=== PATIENT | female | born 1965 ===

== ENCOUNTER 2024-07-24 18:05 | Emergency (ER) | payer OTHER, SELFPAY ==
[2024-07-24] VITALS (9 sets, daily range): BP systolic 115–147; BP diastolic 54–77; PULSE 105–119; RESP 14–20; TEMP 36.8–38.1; O2SAT 94–97; BMI 43.5
--- NOTE | 2024-07-24 18:52 | ECG_ITS ---
Test Reason : tachy Blood Pressure : */* mmHG Vent. Rate : 114 BPM Atrial Rate : 114 BPM P-R Int : 120 ms QRS Dur : 72 ms QT Int : 314 ms P-R-T Axes : 68 50 -8 degrees QTcB Int : 432 ms Sinus tachycardia Nonspecific T wave abnormality Abnormal ECG When compared with ECG of 18-Sep-2018 10:42, No significant change was found Referred By: Keli Matthews Electronically Signed By: TREVOR SNYDER MD
--- NOTE | 2024-07-24 19:12 | ED.SKABFB ---
HPI - Skin/Abscess/Foreign Bdy General Chief complaint: Skin/Abscess/Foreign Body Stated complaint: Right side lump under armpit / very tender Time Seen by Provider: 07/24/24 18:54 Source: patient Limitations: no limitations History of Present Illness ED Provider: Bridget Woodward PA-C HPI narrative: 58-year-old female with a history of morbid obesity presents with infection in and right axilla times 4 days. Patient states she noted a swelling in the right armpit region, the swelling and pain have since progressed. Patient developed a fever today. Patient was seen by primary care on Saturday, she was placed on antibiotics, she is pending surgical consult with Dr. Frias scheduled for Thursday 07/27. Related Data Previous Rx's ?Medication ?Instructions ?Recorded doxycycline hyclate 100 mg capsule 100 mg PO BID #14 caps 07/24/24 ibuprofen 800 mg tablet 800 mg PO Q8H PRN pain #30 tabs 07/27/24 Allergies Allergy/AdvReac Type Severity Reaction Status Date / Time acetaminophen [From PERCOCET] Allergy Intermediate HIVES Verified 07/27/24 11:16 oxycodone [From PERCOCET] Allergy Intermediate HIVES Verified 07/27/24 11:16 trimethobenzamide Allergy Mild RASH Verified 07/27/24 11:16 [From TIGAN] Review of Systems Review of Systems: Yes all other systems are reviewed and are negative Constitutional: Constitutional: Denies fatigue and Reports fever(s) Cardiovascular: Cardiovascular: Denies chest pain and Denies dyspnea Respiratory: Respiratory: Denies cough and Denies dyspnea Gastrointestinal: Gastrointestinal: Denies abdominal pain, Denies nausea and Denies vomiting Genitourinary: Genitourinary: Denies dysuria Integumentary/Breasts: Skin/Breast: Reports lesions and Reports erythema Endocrine: Endocrine: Denies fatigue PMFSH Past Medical History Attestation statement: The following information was validated with the patient. Physical Exam Vital Signs: Vital Signs: Last Vital Signs Temp 98.6 F 07/24/24 23:29 Pulse 107 H 07/24/24 23:29 Resp 16 07/24/24 23:29 BP 127/57 L 07/24/24 23:29 Pulse Ox 97 07/24/24 23:29 O2 Del Method Room Air 07/24/24 23:29 BMI result Body Mass Index 43.5 Const: Other: Alert Orientation/consciousness: patient oriented x3 Resp: Effort & Inspection: normal respiratory effort Cardio: Other: Normal peripheral perfusion Skin: Other: To tender indurated fluctuant swelling noted right axilla overlying erythema, active purulent drainage from 1 of the sites Neuro: General: patient oriented x3, gait normal, no focal motor deficits and CN's II-XI intact bilaterally Psych: Other: Cooperative Course Reevaluation(s) Reevaluation #1: concern for sepsis , the patient was febrile and tachycardic, we will be obtaining blood cultures, lactic, at this point she does not require weight based IV fluid as her blood pressure is stable, we will give a L, treating her fever with antipyretic, starting doxycycline. Pt declines other testing for source for her fever; discontinuing the chest x-ray in the urinalysis, and viral Time: 19:12 Reevaluation #2: Medications Administered Discontinued Medications Generic Name Dose Route Start Last Admin Trade Name Freq PRN Reason Stop Dose Admin Sodium Chloride 1,000 mls @ 999 mls/hr 07/24/24 19:00 07/24/24 21:01 Ns IV 07/24/24 20:00 Infused .Q1H1M SWATI Infusion Doxycycline Hyclate 100 mg/ 250 mls @ 166.67 mls/hr 07/24/24 20:00 07/24/24 21:29 Sodium Chloride IV 07/24/24 21:29 Infused ONCE ONE Infusion Ketorolac Tromethamine 15 mg 07/24/24 18:55 07/24/24 20:00 Ketorolac Tromethamine 15 Mg/Ml Vial IVPUSH 07/24/24 18:56 15 mg ONCE ONE Administration Lidocaine/Epinephrine 20 ml 07/24/24 20:01 07/24/24 20:25 Lidocaine Hcl 1%/Epi 1:100,000 10 Ml Vial INFILTRATI 07/24/24 20:02 20 ml ONCE ONE Administration Lorazepam 1 mg 07/24/24 20:00 07/24/24 20:20 Lorazepam 2 Mg/Ml Vial IVPUSH 07/24/24 20:01 1 mg ONCE ONE Administration Morphine Sulfate 4 mg 07/24/24 20:00 07/24/24 20:20 Morphine Sulfate 4 Mg/Ml Cartridge IVPUSH 07/24/24 20:01 4 mg ONCE ONE Administration Protocol Medical Decision Making Medical Decision Making [facility] Narrative: 58-year-old female with a history of morbid obesity presents with infection in and right axilla times 4 days. Patient states she noted a swelling in the right armpit region, the swelling and pain have since progressed. Patient developed a fever today. Patient was seen by primary care on Saturday, she was placed on antibiotics, she is pending surgical consult with Dr. Frias scheduled for Thursday 07/27. Problem: Large abscesses History: Per patient I have considered the following differential diagnoses: Sepsis, cellulitis, purulent cellulitis, carbuncle, furuncle, hidradenitis suppurativa Plan: concern for sepsis , the patient was febrile and tachycardic, we will be obtaining blood cultures, lactic, at this point she does not require weight based IV fluid as her blood pressure is stable, we will give a L, treating her fever with antipyretic, starting doxycycline. I do believe the abscesses are the cause for her fever, in the absence of any other symptoms. She will require I and D. we will be giving morphine and Ativan prior to prepping the site for I and D. I have independently reviewed the following tests: Labs: Leukocytosis noted with left shift, not anemic, no electrolyte abnormality, lactate 1.0 Lab Data 07/24/24 19:19 07/24/24 19:20 Labs: Lab Results 07/24/24 07/24/24 Range/Units 19:19 19:20 WBC 17.6 H (4.8-10.8) X10*3/uL RBC 4.88 (4.20-5.50) X10*6/uL Hgb 14.7 (12.0-16.0) g/dl Hct 41.0 (37.0-47.0) % MCV 84.0 (80.0-98.0) fL MCH 30.1 (27.0-33.0) pg MCHC 35.9 H (31.0-35.0) g/dl RDW 12.4 (11.0-16.0) % Plt Count 218 (160-400) X10*3/uL MPV 11.3 (9.4-12.3) fL Immature Gran % (Auto) 0.4 (0.0-0.4) % Neut % (Auto) 78.1 H (45-73) % Lymph % (Auto) 13.7 L (20-40) % [place] % (Auto) 6.1 (2-11) % Eos % (Auto) 1.5 (0-4) % Baso % (Auto) 0.2 (0-2) % Lymph # (Auto) 2.4 (1.2-4.9) X10*3/uL [place] # (Auto) 1.1 (0.1-1.2) X10*3/uL Eos # (Auto) 0.3 (0.0-0.4) X10*3/uL Baso # (Auto) 0.0 (0.0-0.2) X10*3/uL Abs Immat Gran (auto) 0.07 H (0.00-0.03) X10*3/uL Absolute Neuts (auto) 13.7 H (2.0-8.3) x10*3/uL Absolute Nucleated RBC 0.000 (0.0-0.012) X10*3/uL Nucleated RBC % (auto) 0.0 (0.0-0.2) /100WBC Sodium 129 L (135-145) mmol/L Potassium 5.6 H (3.3-5.1) mmol/L Chloride 100 (96-108) mmol/L Carbon Dioxide 21 L (22-29) mmol/L Anion Gap 14 (12-20) BUN 15 (9-16) mg/dL Creatinine 0.95 (0.5-1.4) mg/dL Estim Creat Clear Calc 72.6 Estimated GFR > 60 Random Glucose 345 H (60-115) mg/dL Lactic Acid 1.0 (0.5-2.0) mmol/L Calcium 8.8 (8.4-10.2) mg/dL Magnesium 1.9 (1.6-2.6) mg/dL Total Bilirubin 0.5 (0.0-1.0) mg/dL AST 60 H (5-31) U/L ALT 34 H (0-31) U/L Alkaline Phosphatase 121 H (39-117) U/L Total Protein 8.3 H (6.5-8.0) g/dL Albumin 3.5 (3.5-5.0) g/dL Procedures Abscess I/D Site: other (axilla) Side (if applicable): right Sedation/analgesia: none Local Anesthetic: lidocaine 1% and with epi Amount of anesthesia used (mL): 10 Technique: incised with blade and ultrasound guided Amount of fluid expressed (mL): 20 Sent for culture/gram staining?: No Irrigation: Yes Packing used?: iodoform Discharge Plan Discharge Clinical Impression: Abscess of skin or subcutaneous tissue Patient Disposition: Home, Self-Care Instructions: Abscess (ED), Incision and Drainage (ED) Additional Instructions: You had 2 large abscesses that were drained. See home care instructions. There is packing material and each abscess, to control the bleeding. The packing can be removed in 2 days. I suggest you allow hot water to run over the area, then quickly remove the drains. Keep your follow up appointment with Dr. Frias scheduled for this coming Saturday. Take the doxycycline as directed. Prescriptions: New doxycycline hyclate 100 mg capsule 100 mg PO BID Qty: 14 0RF No Action ibuprofen 800 mg tablet 800 mg PO Q8H PRN (Reason: pain) Qty: 30 0RF Interventions: ED Discharge Assessment Last Done: 07/24/24 23:29 Discharge Date/Time: 07/24/24 23:32 Print Language: Bulgarian
[2024-07-24 19:28] LABS: MANUAL DIFF FLAG NO
--- NOTE | 2024-07-24 19:33 | MHC.EDTECH ---
Patient brought in from triage, @1900, pt changed into hospital attire, EKG taken per order and signed by provider, pt placed on the secured entrance monitor, blood cultures and labs drawn and sent to lab,vitals taken, temp is 99.7,orally, HR 113 RN aware, family at bedside,call kuo in reach
[2024-07-24 19:37] LABS: Basophils Percent Auto 0.2 % (0-2); Eosinophils Absolute Auto 0.3 X10*3/uL (0.0-0.4); Eosinophils Percent Auto 1.5 % (0-4); Hemoglobin 14.7 g/dl (12.0-16.0); Imm Gran Abs Auto 0.07 X10*3/uL (0.00-0.03); Imm Gran Pct Auto 0.4 % (0.0-0.4); Lymphocytes Absolute Auto 2.4 X10*3/uL (1.2-4.9); Lymphocytes Percent Auto 13.7 % (20-40); Mean Corpuscular HGB Conc 35.9 g/dl (31.0-35.0); Mean Corpuscular Hemoglobin 30.1 pg (27.0-33.0); Mean Platelet Volume 11.3 fL (9.4-12.3); Monocytes Absolute Auto 1.1 X10*3/uL (0.1-1.2); Monocytes Percent Auto 6.1 % (2-11); Neutrophils Absolute Auto 13.7 x10*3/uL (2.0-8.3); Neutrophils Percent Auto 78.1 % (45-73); Platelet Count 218 X10*3/uL (160-400); Red Blood Count 4.88 X10*6/uL (4.20-5.50); Red Cell Distribution Width 12.4 % (11.0-16.0); White Blood Count 17.6 X10*3/uL (4.8-10.8)
--- OUTSIDE RECORDS SUMMARY | 2024-07-24 19:41 | XMS_ITS | Clinical Summary ---
Author Organization [facility] it Address [address] [place] [address] Care Team Providers Care Commis Chef Name Role Phone Unavailable Primary Care Provider Unavailabl e Social History Tobacco Use Types Packs/Day Years Used Date Smoking Tobacco: Never Assessed Comments Unknown Sex and Gender Information Value Date Recorded Sex Assigned at Not on file Legal Sex Female 1:59 PM EST Gender Identity Not on file Sexual Orientation Not on file Plan of Treatment Health Maintenance Due Date Last Done Comments DTaP,Tdap,and Td Vaccines (1 - Tdap) 1985 Hepatitis B Vaccines (1 of 3 - 19+ 3-dose series) 1985 Cervical Cancer Screening: P ap Smear 08/23/1987 Pneumococcal Vaccine: 50+ Years (1 of 1 - PCV) 2016 Zoster Vaccines (1 of 2) 2016 Colorectal Cancer Screening: Colonoscopy 04/18/2022 Depression Screening 04/18/2022 HIV Screening 04/18/2022 Hepatitis C Screening 04/18/2022 Social Influencers of Health Screening 04/18/2022 COVID-19 Vaccine (1 - 2023-2 5 season) 2024 Influenza Vaccine (#1) 2024 Breast Cancer Screening 02/04/2025 02/05/20 23, 11/06/2020, 03/21/2018 HIB Vaccines Aged Out No longer eligi ble based on patient's age to complete this topic HPV Vaccines Aged Out No longer eligi ble based on patient's age to complete this topic Hepatitis A Vaccines Aged Out No long er eligible based on patient's age to complete this topic IPV Vaccines Aged Out No longer eligi ble based on patient's age to complete this topic MMR Vaccines Aged Out No longer eligi ble based on patient's age to complete this topic Meningococcal ACWY Vaccine Aged Out N o longer eligible based on patient's age to complete this topic Meningococcal B Vacine Aged Out No lo nger eligible based on patient's age to complete this topic Pneumococcal Vaccine: Pediatrics (0 to 5 Years) and At-Risk Patients (6 to 64 Years) Aged Out No longer eligible b ased on patient's age to complete this topic RSV Immunization Patients Under 20 months Aged Out No longer eligible b ased on patient's age to complete this topic Varicella Vaccines Aged Out No longer eligible based on patient's age to complete this topic Procedures Procedure Name Priority Date/Time Associated Diagnosis Comments [facility] SCREENING DIGITAL Routine 02/04/2023 11:44 AM EDT Encounter for screening mammogram for malignant neoplasm of breast from Last 3 Months or Most Recently Relevant to Health Maintenance Results * [facility] SCREENING [facility]ITAL (02/04/2023 11:44 AM EDT) Anatomical Region Laterality Modality Mammography 01/31/2023 8:40 AM EDT Narrative 02/04/2023 11:44 AM EDT [facility] Diagnostic Imaging Department [address] [place], [place] [id number] Patient: ??BAUGH,DEB E ?/Age/Sex: 1965 - 57 - F Unit#: ??[id number] ? Location/Status: ??SPDIMAM/REG CLI ? Mnemonic/Ordering Site: ??DIGSC/SPMAM Ordering Physician: ??MARIA R AVILA MD Derek Screening Digital - 02/02/23 - Report Status:Signed EXAM: [facility] Screening Digital EXAM DATE AND TIME: 02/02/2023 10:41 AM HISTORY: ??Screening. Right breast biopsy in 2008, pathology benign (ductal hyperplasia without atypia, with calcifications). COMPARISON: ??11/05/20, 03/21/18, 11/02/16 TECHNIQUE: Bilateral digital breast tomosynthesis was performed in the CC and MLO projections. Computer aided detection with Pi[employer]ronix 3D 3.1 was employed. TISSUE DENSITY: b. There are scattered areas of fibroglandular density. FINDINGS: There are 2 adjacent groups of linearly oriented microcalcifications in the anterolateral right breast, new from the previous studies. No associated mass is identified. Spot compression magnification views are recommended for further assessment. Scattered microcalcifications elsewhere bilaterally show no significant change. Benign rim calcifications are present. No suspicious masses are seen. A biopsy marker is again seen in the upper outer right breast, with adjacent tissue asymmetry becoming less conspicuous since the 2008 biopsy procedure. The skin and vascularity are unremarkable. IMPRESSION: 1. Grouped microcalcifications in the anterolateral right breast, for which additional views are recommended. The patient will be called back. 2. Stable mammographic appearance of the left breast. No evidence of malignancy is seen. BI-RADS: ??Category 0: Incomplete - Need Additional Imaging Evaluation RECOMMENDATION(S): 1: Special mammographic view(s) needed RIGHT Dictating Physician: ??SEDA ANTUNEZ MD Electronically Signed by: ??SEDA ANTUNEZ MD Dic Date/Time: ??02/04/23 1140 Sign date/Time: ??02/04/23 1144 Procedure Note Seda Antunez MD - 06/25/2023 [facility] Diagnostic Imaging Department [address] [place] [address] Patient: DEB BAUGH /Age/Sex: 1965 - 57 - F Unit#: [id number] [facility] Ordering Physician: MARIA R AVILA MD [facility] Screening Digital - 02/02/23 - Report Status:Signed EXAM: [facility] Screening Digital EXAM DATE AND TIME: 02/02/2023 10:41 AM HISTORY: Screening. Right breast biopsy in 2008, pathology benign(ductal hyperplasia without atypia, with calcifications). COMPARISON: 11/05/20, 03/21/18, 11/02/16 TECHNIQUE: Bilateral digital breast tomosynthesis was performed in the CCand MLO projections. Computer aided detection with Edu[employer] AI 3D 3.1was employed. TISSUE DENSITY: b. There are scattered areas of fibroglandular density. FINDINGS: There are 2 adjacent groups of linearly oriented microcalcifications inthe anterolateral right breast, new from the previous studies. No associatedmass is identified. Spot compression magnification views are recommended forfurther assessment. Scattered microcalcifications elsewhere bilaterally show no significantchange. Benign rim calcifications are present. No suspicious masses are seen. Abiopsy marker is again seen in the upper outer right breast, with adjacenttissue asymmetry becoming less conspicuous since the 2008 biopsy procedure. The skin and vascularity are unremarkable. IMPRESSION: 1. Grouped microcalcifications in the anterolateral right breast, forwhich additional views are recommended. The patient will be called back. 2. Stable mammographic appearance of the left breast. No evidence ofmalignancy is seen. BI-RADS: Category 0: Incomplete - Need Additional Imaging Evaluation RECOMMENDATION(S): 1: Special mammographic view(s) needed RIGHT Dictating Physician: SEDA ANTUNEZ MD Electronically Signed by: SEDA ANTUNEZ MD Dic Date/Time: 02/04/23 1140 Sign date/Time: 02/04/23 1144 us Maria R Goldberg MD IMG BI PROCEDURES Final Result from Last 3 Months or Most Recently Relevant to Health Maintenance
[2024-07-24 19:56] LABS: Alanine Aminotransferase 34 U/L (0-31); Albumin Level 3.5 g/dL (3.5-5.0); Alkaline Phosphatase 121 U/L (39-117); Anion Gap 14 (12-20); Aspartate Amino Transferase 60 U/L (5-31); Bilirubin Total 0.5 mg/dL (0.0-1.0); Blood Urea Nitrogen 15 mg/dL (9-16); Calcium 8.8 mg/dL (8.4-10.2); Carbon Dioxide 21 mmol/L (22-29); Chloride 100 mmol/L (96-108); Creatinine Clr Calc Pharmacy 72.6; Estimated Glomerular Filt Rate > 60; Glucose Random 345 mg/dL (60-115); Magnesium 1.9 mg/dL (1.6-2.6); Potassium 5.6 mmol/L (3.3-5.1); Sodium 129 mmol/L (135-145); Total Protein 8.3 g/dL (6.5-8.0)
[2024-07-24] MEDS: Ketorolac Tromethamine 15 MG/ML VIAL IVPUSH (20:00)
[2024-07-24] MEDS: 0.9 % Sodium Chloride 1,000 ML 999 ML IV (20:00)
[2024-07-24] MEDS: LORazepam 2 MG/ML VIAL 1 MG IVPUSH (20:20)
[2024-07-24] MEDS: Morphine Sulfate 4 MG/ML CARTRIDGE IVPUSH (20:20)
[2024-07-24] MEDS: Lidocaine HCl 1%/Epi 1:100,000 10 ML VIAL 20 ML INFILTRATI (20:25)
[2024-07-24] MEDS: Doxycycline Hyclate 100 MG in 0.9 % Sodium Chloride 250 ML 166.67 MG IV (20:29)
== END 2024-07-24 23:32 | disposition home or self-care (01) ==
PROVIDERS: Physician Assistant Medical; Emergency Provider Emergency Medicine Emergency Medical Services; PCP Internal Medicine
DX: L02.411 Cutaneous abscess of right axilla (principal); E66.01 Morbid (severe) obesity due to excess calories; Z68.41 Body mass index [BMI] 40.0-44.9, adult
CPT/HCPCS: 10060; 36415; 80053; 83605; 83735; 85025; 87040; 93005; 96361; 96374; 96375; 99284; J1885; J2004; J2060; J2270

== ENCOUNTER → 2024-07-24 18:52 | Outpatient (BNV) | payer OTHER, SELFPAY | PROVIDERS: Emergency Provider Emergency Medicine Emergency Medical Services; PCP Internal Medicine; Visit Provider Internal Medicine Cardiovascular Disease | DX: R00.0 Tachycardia, unspecified (principal); R94.31 Abnormal electrocardiogram [ECG] [EKG] | CPT/HCPCS: 93010 ==

== ENCOUNTER → 2024-07-27 11:13 | Outpatient (BNVA) | payer OTHER, SELFPAY | PROVIDERS: PCP Internal Medicine; Visit Provider Surgery | DX: Z09 Encounter for follow-up examination after completed treatment for conditions other than malignant neoplasm (principal); Z87.2 Personal history of diseases of the skin and subcutaneous tissue; Z98.890 Other specified postprocedural states | CPT/HCPCS: 99202 ==

== ENCOUNTER 2024-07-27 11:14 | Outpatient (AMB) | payer OTHER, SELFPAY ==
--- NOTE | 2024-07-27 11:15 | MHC.OFFVIS ---
Intake Visit Reasons: 3-4cm (R) axillary mass Intake Note: Patient referred by Dr. Toledo for mass on Rt axilla. Present for months. Cephalexin changed to Doxycycline while at ER on 07-24-24. Patient c/o: severe pain. Was prescribed Tramadol but makes me sleepy. 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 She is here for follow-up status post I&D of right axillary abscess x2. She was given antibiotics and analgesics. Physical Exam Extrem Other: To I&D sites right axilla. Resolving infective process. Packing removed and each with no further purulent drainage. Repack and performed by Rashad office nurse and dressing applied. We will tolerated. Patient will undergo coordinated packing changes with Rashad, give in the script for Motrin, and will follow-up with me as directed or p.r.n.. Assessment & Plan Assessment & Plan (1) Status post incision and drainage: Code(s): Z98.890 - Other specified postprocedural states Category: Medical Plan Plan as noted above. Coding Level of Care Code New Pt Level 4 (89137) Diagnoses Status post incision and drainage Z98.890
--- OUTSIDE RECORDS SUMMARY | 2024-07-27 12:49 | XMS_ITS | Clinical Summary ---
Author Organization [facility] it Address [address] [place] [address] Care Team Providers Care Veneer Sheet Repairer Name Role Phone Unavailable Primary Care Provider [...] Procedure Name Priority Date/Time Associated Diagnosis Comments [facility] SCREENING [facility]IGITAL Routine 02/04/2023 11:44 AM EDT Encounter for screening mammogram for malignant neoplasm of breast from Last 3 Months or Most Recently Relevant to Health Maintenance Results * [facility] SCREEN[facility] (02/04/2023 11:44 AM EDT) Anatomical Region Laterality Modality Mammography 01/31/2023 8:40 AM EDT Narrative 02/04/2023 11:[address] [facility] Diagnostic Imaging Department [address] [place], [place] [id number] Patient: ??BAUGH,DEB E ?/Age/Sex: 1965 - 57 - F Unit#: ??[id number] ? Location/Status: ??SPDIMAM/REG CLI ? Mnemonic/Ordering Site: ??DIGSC/SPMAM Ordering Physician: ??MARIA R AVILA MD Derek Screening Digital - 02/02/23 - Report Status:Signed EXAM: [facility] Screening Digital EXAM DATE AND TIME: 02/02/2023 10:41 AM HISTORY: ??Screening. Right breast biopsy in 2008, pathology benign (ductal hyperplasia without atypia, with calcifications). COMPARISON: ??11/05/20, 03/21/18, 11/02/16 TECHNIQUE: Bilateral digital breast tomosynthesis was performed in the CC and MLO projections. Computer aided detection with [employer] 3D 3.1 was employed. TISSUE DENSITY: b. [...] Procedure Note Seda Antunez MD - 06/25/2023 [facility] Diagnostic Imaging Department [address] [place] [address] Patient: DEB BAUGH /Age/Sex: 1965 - 57 - F Unit#: [id number] [facility] Ordering Physician: MARIA R AVILA MD [facility] Screening Digital - 02/02/23 - Report Status:Signed EXAM: [facility] Screening Digital EXAM DATE AND TIME: 02/02/2023 10:41 AM HISTORY: Screening. Right breast biopsy in 2008, pathology benign(ductal hyperplasia without atypia, with calcifications). COMPARISON: 11/05/20, 03/21/18, 11/02/16 TECHNIQUE: Bilateral digital breast tomosynthesis was performed in the CCand MLO projections. Computer aided detection with Look[employer] AI 3D 3.1was employed. TISSUE DENSITY: b. [...]
== END 2024-07-27 11:42 | disposition home or self-care (01) ==
PROVIDERS: PCP Internal Medicine; Visit Provider Surgery
DX: Z98.890 Other specified postprocedural states (principal)
CPT/HCPCS: 99204

== ENCOUNTER → 2024-07-28 09:25 | Outpatient (BNVA) | payer OTHER, SELFPAY | PROVIDERS: PCP Internal Medicine; Visit Provider Surgery | DX: Z48.01 Encounter for change or removal of surgical wound dressing (principal); L02.419 Cutaneous abscess of limb, unspecified | CPT/HCPCS: 99211 ==

== ENCOUNTER → 2024-07-29 09:23 | Outpatient (BNVA) | payer OTHER, SELFPAY | PROVIDERS: PCP Internal Medicine; Visit Provider Surgery | DX: Z48.01 Encounter for change or removal of surgical wound dressing (principal) | CPT/HCPCS: 99211 ==

== ENCOUNTER → 2024-07-30 09:45 | Outpatient (BNVA) | payer OTHER, SELFPAY | PROVIDERS: PCP Internal Medicine; Visit Provider Surgery | DX: Z48.01 Encounter for change or removal of surgical wound dressing (principal); Z98.890 Other specified postprocedural states | CPT/HCPCS: 99211 ==

== ENCOUNTER 2024-08-17 09:39 | Outpatient (AMB) | payer OTHER, SELFPAY ==
--- NOTE | 2024-08-17 09:45 | A.OFFVIS_ITS ---
Intake Visit Reasons: 2 week follow up dressing change Intake Note: Patient here s/p I&D abscess on Rt axilla. Completed Doxycycline course. Patient c/o: feels tender lump underneath skin. Control Clerk Auditing Required: No Accompanied by: daughter in law Allergies acetaminophen [From PERCOCET] Allergy (Intermediate, Verified 08/17/24 09:45) HIVES oxycodone [From PERCOCET] Allergy (Intermediate, Verified 08/17/24 09:45) HIVES trimethobenzamide [From TIGAN] Allergy (Mild, Verified 08/17/24 09:45) RASH HPI Comments Details: Patient presents for 2nd wound follow-up status post ER I&D of right axillary abscess. She has complete resolution of her symptoms. Physical Exam Extrem Other: Patient was complete healing of a right axillary infected sebaceous cyst wound. Assessment & Plan Assessment & Plan (1) Status post incision and drainage: Code(s): Z98.890 - Other specified postprocedural states Category: Surgical (2) Sebaceous cyst of axilla: Code(s): L72.3 - Sebaceous cyst Category: Surgical Plan At present, patient will be treated conservatively regarding the this axillary cyst. This was her 1st episode. Should this recur, consideration for 6 excision will be entertained. At present, patient was been given local instructions and will otherwise follow-up p.r.n.. All questions answered. Coding Level of Care Code Est Pt Level 4 (28336) Diagnoses Status post incision and drainage Z98.890 Sebaceous cyst of axilla L72.3
== END 2024-08-17 10:03 | disposition home or self-care (01) ==
LOC: HO.HGS 09:39
PROVIDERS: PCP Internal Medicine; Visit Provider Surgery
DX: Z98.890 Other specified postprocedural states (principal); L72.3 Sebaceous cyst
CPT/HCPCS: 99214

== ENCOUNTER → 2024-08-17 09:39 | Outpatient (BNVA) | payer OTHER, SELFPAY | PROVIDERS: PCP Internal Medicine; Visit Provider Surgery | DX: Z09 Encounter for follow-up examination after completed treatment for conditions other than malignant neoplasm (principal); Z98.890 Other specified postprocedural states | CPT/HCPCS: 99212 ==

== ENCOUNTER 2024-11-24 10:32 | Outpatient (AMB) | payer OTHER, SELFPAY ==
--- NOTE | 2024-11-24 10:34 | MHC.OFFVIS ---
Vital Signs 11/24/24 10:52 Height 5 ft 1 in Weight 228 lb BMI 43.1 BP 181/91 H Blood Pressure Location Lt brachial Position Sitting Pulse 127 H Intake Visit Reasons: Abscess~ Rt axilla Intake Note: Patient of Dr Frias is seen in office for abscess of the right axilla. Pt c/o: recurrent abscess of the right axilla came back 3 months after I&D, bloody discharge, drains when sleeping on that side, will like to discuss surgical removal L.OV:08/17/24 Pastor Required: Yes Pastor Services: Pastor Offered & Declined Accompanied by: Family/Other Allergies acetaminophen (From PERCOCET) Allergy (Intermediate, Verified 08/17/24 09:45) HIVES oxycodone (From PERCOCET) Allergy (Intermediate, Verified 08/17/24 09:45) HIVES trimethobenzamide (From TIGAN) Allergy (Mild, Verified 08/17/24 09:45) RASH Medication List - Last Reconciled 11/24/24 by Vivek Alcazar MD alcohol swabs (BD Alcohol Swabs) pad topical blood-glucose sensor (FreeStyle Srinath 3 Plus Sensor device) As directed ibuprofen 800 mg PO Q8H PRN insulin aspart U-100 (Novolog FlexPen U-100 Insulin aspart) 60 - 75 units subcut TID insulin glargine U-300 conc (Toujeo Max U-300 SoloStar) 160 units subcut BEDTIME losartan 50 mg PO DAILY montelukast 10 mg PO DAILY HPI Comments Details: 59-year-old female patient, previous patient of Dr. Frias presenting for re-evaluation of a cyst of the right axilla. This was previously infected and required incision and drainage in the emergency department. She was subsequently treated with oral antibiotics and now notes the cyst has decreased in size in his no longer visible from the outside. She does have continued palpable cyst in the right axilla which he is concerned we will become infected once again. She is now requesting an excision of the cyst to prevent recurring abscess. She denies any current fever, chills, nausea or vomiting. She is diabetic. [facility] Medical History Diabetes mellitus Surgical History Hx of section Family History Father Liver cancer Brother Liver cancer Social History Alcohol intake: never Patient Tobacco Use Status: Never used Tobacco Review of Systems Const All systems reviewed & are unremarkable except as noted in HPI and below Physical Exam Const General: no acute distress Nutritional Appearance: well nourished Orientation/consciousness: patient oriented x3 Limitations: no limitations Chest Chest/axillae images:  1. Area of previous incision and drainage with underlying cyst palpable. There is an area of ulceration noted below an incision in the axilla consistent with prior hidradenitis. Resp Effort & Inspection: normal respiratory effort, no audible wheezes, no cough and no respiratory distress Cardio Jugular venous distension: no JVD GI Inspection: Yes normal to inspection Skin Other: Warm, dry, no rash Neuro General: patient oriented x3 Assessment & Plan Assessment & Plan (1) Sebaceous cyst of axilla: Code(s): L72.3 - Sebaceous cyst Category: Surgical Plan 51-year-old female patient with a previous abscess of the right axilla now presenting for consideration of an excision of the right axillary sebaceous cyst. I reviewed the procedure, risks, and alternatives in detail and she consents to the excision of right axillary skin cyst. This will be scheduled as a short-stay surgery at her earliest convenience. Coding Level of Care Code Est Pt Level 4 (85077) Diagnoses Sebaceous cyst of axilla L72.3
[2024-11-24 10:52] VITALS: BP 181/91; PULSE 127; BMI 43.1
--- OUTSIDE RECORDS SUMMARY | 2024-11-24 11:30 | XMS_ITS | Clinical Summary ---
Author Organization [facility] Address [address] [place] [phone] Phone Care Team Providers Care Him Assistant Name Role Phone Ashley Capps MD Primary Care Provi jeison Encounters Date Type Department Care Team Description 11/07/2024 7:13 AM EDT - 11/07/2024 11:59 PM EDT [facility] [address] [phone] Encounter for screening mammogram for malignant neoplasm of breast Discharge Disposition: Home or Self Care from Last 3 Months Surgical History Surgery Date Site/Laterality Comments STEREOTACTIC CORE BIOPSY Right Social History Tobacco Use Types Packs/Day Years Used Date Smoking Tobacco: Never Assessed Comments No Sex and Gender Information Value Date Recorded Sex Assigned at Female 10/28/2024 8:37 AM EDT Legal Sex Female 1:59 PM EST Gender Identity Female 10/28/2024 8:37 AM EDT Sexual Orientation Straight 10/28/2024 8: 37 AM EDT Obstetrics History Last Filed Vital Signs Vital Sign Reading Time Taken Comments Blood Pressure - - Pulse - - Temperature - - Respiratory Rate - - Oxygen Saturation - - Inhaled Oxygen Concentration - - Weight 104 kg (230 lb) 11/07/2024 7:18 AM EDT Height 154.9 cm (5' 1 ) 11/07/2024 7:18 AM EDT Body Mass Index 43.46 11/07/2024 7:18 AM EDT Plan of Treatment Upcoming Encounters Date Type Department Care Team (Late st Contact Info) Description 12/04/2024 10:15 AM EDT [facility]ointment [facility] [address] [phone] Health Maintenance Due Date Last Done Comments Diabetes: Annual GFR (Glomerular Filtration Rate) 1966 Diabetes: Annual Foot Exam 1976 Diabetes: Annual Retina Eye Exam 1976 Hepatitis A Vaccines (1 of 2 - Risk 2-dose series) 1985 Hepatitis B Vaccines (1 of 3 - 19+ 3-dose series) 1985 Cervical Cancer Screening: Pap Smear 08/23/1987 Pneumococcal Vaccine: 50+ Years (2 of 2 - PCV) 05/25/2020 05/25/2019 COVID-19 Vaccine (3 - Pfizer risk series) 11/18/2020 10/21/2020, 09/06/2020 Cholesterol Screening (Lipid Panel) 04/18/2022 Colorectal Cancer Screening: Colonoscopy 04/18/2022 Depression Screening 04/18/2022 HIV Screening 04/18/2022 Hepatitis C Screening 04/18/2022 Social Influencers of Health Screening 04/18/2022 Zoster Vaccines (2 of 2) 06/28/2023 05/03/2023 Diabetes: Blood Sugar Control Test (HGBA1C) 11/07/2024 Hypertension/CHF/CAD Annual BMP Blood Test 11/07/2024 Diabetes: Annual Urine Albumin-Creatinine Ratio (uACR) 12/16/2024 12/17/2023 Influenza Vaccine (#1) 2025 4, 03/21/2023, 03/09/2021, Additional history exists Breast Cancer Screening 11/07/2026 11/08/19 25, 02/04/2023, 11/06/2020, Additional history exists DTaP,Tdap,and Td Vaccines (2 - Td or Tdap) 05/25/2029 05/25/2019 HIB Vaccines Aged Out No longer eligi [...] age to complete this topic Meningococcal B Vaccine Aged Out No l onger eligible based on patient's age to complete this topic RSV Immunization Patients Under 20 months Aged Out No longer eligible based on patient's age to complete this topic Varicella Vaccines Aged Out No longer eligible based on patient's age to complete this topic Procedures Procedure Name Priority Date/Time Associated Diagnosis Comments MG MAMMO DIGITAL SCREENING W YONIS BILAT Routine 11/07/2024 7:29 AM EDT Encounter for screening mammogram for malignant neoplasm of breast from Last 3 Months Results * (ABNORMAL) MG Mammo Digital Screening w Yonis bilat (11/07/2024 7:29 AM EDT) Anatomical Region Laterality Modality Breast Bilateral Mammography 11/10/2024 9:15 AM EDT Impressions 11/10/2024 9:24 AM EDT Right breast calcifications. Recommend diagnostic right breast mammography with magnification views. BI-RADS CATEGORY: 0 - INCOMPLETE - NEED ADDITIONAL IMAGING EVALUATION RECOMMENDATION: Additional right breast imaging recommended. Mammo Location: [facility], [address] [place] [address], [phone], . -------- FINAL REPORT -------- Dictated By: Josefina Spencer Dictated Date: 11/10/2024 09:15 ET Assigned Physician: Josefina Spencer Reviewed and Electronically Signed By: Josefina Spencer Signed Date: 11/10/2024 09:24 ET Workstation ID: [id number] Transcribed By: Self Edit Transcribed Date: 11/10/2024 09:15 ET Narrative 11/10/2024 9:24 AM EDT CLINICAL: 59 years old, Female, routine annual exam. History of right breast calcifications previously recommended for stereotactic biopsy. COMPARISON: 02/02/2023, 02/05/2023, 11/05/2020 and 03/21/2018 TECHNIQUE: Bilateral MLO and CC views were obtained digitally with 3-D mammogram (digital breast tomosynthesis). Computer-aided detection was utilized in evaluation of this exam (CAD). FINDINGS: There is interval increase in regional calcifications in the upper outer breast. No suspicious masses, calcifications or architectural distortion in the left breast. BREAST DENSITY: B - There are scattered areas of fibroglandular density. Procedure Note Josefina Spencer MD - 11/10/2024 CLINICAL: 59 years old, Female, routine annual exam. History of rightbreast calcifications previously recommended for stereotactic biopsy. COMPARISON: 02/02/2023, 02/05/2023, 11/05/2020 and 03/21/2018 TECHNIQUE: Bilateral MLO and CC views were obtained digitally with 3-Dmammogram (digital breast tomosynthesis). Computer-aided detection wasutilized in evaluation of this exam (CAD). FINDINGS: There is interval increase in regional calcifications in the upper outerbreast. No suspicious masses, calcifications or architectural distortionin the left breast. BREAST DENSITY: B - There are scattered areas of fibroglandular density. IMPRESSION: Right breast calcifications. Recommend diagnostic right breastmammography with magnification views. BI-RADS CATEGORY: 0 - INCOMPLETE - NEED ADDITIONAL IMAGING EVALUATION RECOMMENDATION: Additional right breast imaging recommended. Mammo Location: [facility], [address] [place] [address], [phone], . -------- FINAL REPORT -------- Dictated By: Josefina Spencer Dictated Date: 11/10/2024 09:15 ET Assigned Physician: Josefina Spencer Reviewed and Electronically Signed By: Josefina Spencer Signed Date: 11/10/2024 09:24 ET Workstation ID: [id number] Transcribed By: Self Edit Transcribed Date: 11/10/2024 09:15 ET Ashley Last MD IMG BI PROCEDURES F inal Result from Last 3 Months Insurance [facility] Care Teams Him Assistant Relationship Specialty Start Date End Date Ashley Capps MD [address] [place] [phone] PCP - General Family Medicine 10/28/24
== END 2024-11-24 11:15 | disposition home or self-care (01) ==
LOC: HO.HGS 10:35
PROVIDERS: PCP Internal Medicine; Visit Provider Surgery
DX: L72.3 Sebaceous cyst (principal)
CPT/HCPCS: 99214

== ENCOUNTER → 2024-11-24 10:32 | Outpatient (BNVA) | payer OTHER, SELFPAY | PROVIDERS: PCP Internal Medicine; Visit Provider Surgery | DX: L72.3 Sebaceous cyst (principal) | CPT/HCPCS: 99212 ==

== ENCOUNTER 2024-12-13 18:00 | Emergency (ER) | payer OTHER, SELFPAY ==
--- NOTE | ~2024-12-13 | CT_ITS ---
CLINICAL HISTORY: RLQ R flank pain CT Abdomen and Pelvis WO Contrast COMPARISON: None provided FINDINGS: Diffusely hypodense liver consistent with hepatic steatosis. Splenomegaly Possible calculus in the mid to distal right ureter measuring 2 mm (series 3, image 73; series 4, image 601). No hydronephrosis at the time of the study. Trnot-[id number]-left perinephric fat stranding. Unremarkable left kidney. Mild nonspecific hypertrophy of the bilateral adrenal glands. Normal pancreas. No visible cholelithiasis. No biliary dilation. No evidence of bowel obstruction or colitis. Normal appendix. Unremarkable bladder. Unremarkable uterus. No ascites. No pneumoperitoneum. No lymphadenopathy. No acute fracture. Degenerative changes in the spine. No abdominal aortic aneurysm. IMPRESSION: Possible mid to distal right ureteral calculus. No hydronephrosis at the time of the study. Nonemergent/incidental findings above. This document has been electronically signed by: Jason Cool MD on 12/13/2024 21:46:53
[2024-12-13 18:13] VITALS: BP 150/73; PULSE 124; RESP 20; TEMP 37.4; O2SAT 96; BMI 19.6
--- NOTE | 2024-12-13 18:23 | ED_ITS ---
HPI - General Adult General Chief complaint: Urogenital-Female Stated complaint: R ovary pain/Cramping Time Seen by Provider: 12/13/24 19:43 Source: patient Mode of arrival: ambulatory Limitations: no limitations History of Present Illness ED Provider: Dr. Vesta Mullins HPI narrative: Patient comes to the emergency room complaining of right lower quadrant pain/right flank pain for 5 days. Patient states that the pain is constant, nonradiating. Patient states that she did not think she had dysuria. However, because she is diabetic she decided to take ampicillin which she had left over from a previous prescription. Patient states that she took 4 doses already. Patient states that at home she has been having chills, unknown fever. At this time, patient denies nausea vomiting or diarrhea, denies history of kidney stones or ovarian cysts. Related Data Home Medications ?Medication ?Instructions ?Recorded ?Confirmed alcohol swabs (BD Alcohol Swabs) pad topical 11/24/24 11/24/24 blood-glucose sensor (FreeStyle #1 ea 11/24/24 5 Srinath 3 Plus Sensor device) insulin aspart U-100 100 unit/mL 60 - 75 unit subcut T ID 11/24/24 11/24/24 (3 mL) subcutaneous pen (Novolog FlexPen U-100 Insulin aspart) insulin glargine U-300 conc 300 160 unit subcut BEDTIM E 11/24/24 11/24/24 unit/mL (3 mL) subcutaneous pen (Toujeo Max U-300 SoloStar) losartan 50 mg tablet 50 mg PO DAILY 11/24/2401/11 montelukast 10 mg tablet 10 mg PO DAILY 11/24/2401/11 Previous Rx's ?Medication ?Instructions ?Recorded ibuprofen 800 mg tablet 800 mg PO Q8H PRN pain #30 t abs 07/27/24 ketorolac 10 mg tablet 10 mg PO Q8H PRN pain #12 ta bs 12/13/24 levofloxacin 500 mg tablet 500 mg PO DAILY #6 tabs tamsulosin 0.4 mg capsule 0.4 mg PO DAILY #14 caps Allergies Allergy/AdvReac Type Severity Reaction Status Date / Time acetaminophen (From PERCOCET) Allergy Intermediate HIVES Verified 12/13/24 18:19 oxycodone (From PERCOCET) Allergy Intermediate HIVES Verified 12/13/24 18:19 trimethobenzamide (From Allergy Mild RASH Verified 12/13/24 18:19 TIGAN) Review of Systems 2 Review of Systems: Constitutional : No Weight loss, No Fever, No Chills, No Night Sweats, No Fatigue, No Malaise ENT/Mouth : No Hearing loss, No Ear Pain, No Nasal Congestion, No Sinus Pain, No Hoarseness, No sore throat, No Rhinorrhea, No Swallowing Difficulty Eyes: No Eye Pain, No Swelling, No Redness, No Foreign Body, No Discharge, No Vision Changes Cardiovascular : No Chest Pain, No SOB, No Dyspnea on Exertion, No Orthopnea, No Edema, No Palpitations Respiratory : No Cough, No Sputum, No Wheezing, No Smoke Exposure, No Dyspnea Gastrointestinal : No Nausea, No Vomiting, No Diarrhea, No Constipation, complaining of right lower quadrant pain/right flank pain, nonradiating, constant Genitourinary : no irregular bleeding, No Dysuria, No Urinary Frequency, No Hematuria, No Urinary Incontinence, No Urgency, No Flank Pain, No Urinary Flow Changes, No Hesitancy Musculoskeletal : No joint pain, No Myalgias, No Joint Swelling Skin : No Skin Lesions, No rash Neuro : No Weakness, No Numbness, No Paresthesias, No Loss of Consciousness, No Dizziness, No Headache Psych : No Anxiety/Panic, No Depression, No SI/HI/AH/VH, No Social Issues, Heme/Lymph: No Bruising, No Bleeding,No Lymphadenopathy Endocrine : No Polyuria, No Polydipsia, No Temperature Intolerance [facility] Past Medical History Medical History Diabetes mellitus Surgical History Hx of section Family History Family History Father Liver cancer Brother Liver cancer Social History Social History Alcohol intake: never Patient Tobacco Use Status: Never used Tobacco Physical Exam ED Vital Signs: Vital Signs - 24 hr 12/13/24 18:13 12/13/24 19:47 12/13/24 21:20 Temperature 99.3 F 98.8 F Pulse Rate 124 H 108 H 98 Respiratory Rate 20 16 16 Blood Pressure 150/73 H 137/78 150/83 H Pulse Oximetry 96 95 97 Oxygen Delivery Method Room Air Room Air Room Air 12/13/24 22:53 Temperature 97.9 F Pulse Rate 98 Respiratory Rate 16 Blood Pressure 150/83 H Pulse Oximetry 97 Oxygen Delivery Method Room Air BMI result Body Mass Index 19.6 Course Course Course Narrative: RME: 59 yold female presents to the ED for right flank pain, right bladder pain, and glucose above 400. Patient denies any chest pain or shorntess of breath. labs ordred Medications Administered Discontinued Medications Generic Name Dose Route Start Last Admin Trade Name Freq PRN Reason Stop Dose Admin Sodium Chloride 1,000 mls @ 999 mls/hr 12/13/24 19:52 12/13/24 21:19 Ns IVCONT 12/13/24 20:52 Infused .Q1H1M ONE Infusion Insulin Human Regular 10 unit 12/13/24 19:52 12/13/24 20:08 Insulin Regular, Human 100 Unit/Ml 10 Ml Vial IVPUSH 12/13/24 19:53 10 unit ONCE ONE Administration Ketorolac Tromethamine 30 mg 12/13/24 19:52 12/13/24 20:11 Ketorolac Tromethamine 30 Mg/Ml Vial IVPUSH 12/13/24 19:53 30 mg ONCE ONE Administration Levofloxacin 500 mg 12/13/24 19:52 12/13/24 20:12 Levofloxacin 500 Mg Tablet PO 12/13/24 19:53 500 mg ONCE ONE Administration Medical Decision Making Medical Decision Making [facility] Narrative: My interpretation of labs: Patient's white blood cell count 17.5, chemistry shows a sodium of 130 along with a glucose of 345, anion gap 14, normal LFTs, hCG negative. Urinalysis borderline positive, negative for nitrate and leukocyte. However, patient already had 4 doses of ampicillin which she had left over from previous prescriptions On physical exam, patient complaining of right flank/right lower quadrant pain. Appendicitis can not be ruled out. Patient states that she is very afraid of using contrast since she has had 2 family members had adverse reactions. Patient agreeable to get a CAT scan without contrast. Patient received IV fluids, 10 units of insulin for hyperglycemia CT scan of the abdomen shows a 2 mm ureteral stone. Since it is possible that patient may have had a UTI that was being treated with left ovary ampicillin, we will treat as UTI. Patient was given the 1st dose of p.o. antibiotic here in the emergency room. Differential Diagnosis Differential Diagnoses: The differential diagnosis associated with the presentation includes (Hyperglycemia, ureterolithiasis, pyelonephritis, UTI and, musculoskeletal pain) Admission/Observation Consideration of admission/observation: Escalation of care including admission/observation considered (In patient's symptoms and presentation, observation was considered) Lab Data MDM Lab Attestation statement: I reviewed the patient's lab results. 12/13/24 18:35 12/13/24 18:35 Labs: Lab Results 12/13/24 12/13/24 12/13/24 Range/Units 18:35 18:36 20:11 WBC 17.5 H (4.8-10.8) X10*3/uL RBC 5.05 (4.20-5.50) X10*6/uL Hgb 15.1 (12.0-16.0) g/dl Hct 42.3 (37.0-47.0) % MCV 83.8 (80.0-98.0) fL MCH 29.9 (27.0-33.0) pg MCHC 35.7 H (31.0-35.0) g/dl RDW 12.0 (11.0-16.0) % Plt Count 179 (160-400) X10*3/uL MPV 10.7 (9.4-12.3) fL Immature Gran % (Auto) 0.4 (0.0-0.4) % Neut % (Auto) 77.1 H (45-73) % Lymph % (Auto) 13.3 L (20-40) % [place] % (Auto) 8.8 (2-11) % Eos % (Auto) 0.2 (0-4) % Baso % (Auto) 0.2 (0-2) % Lymph # (Auto) 2.3 (1.2-4.9) X10*3/uL [place] # (Auto) 1.6 H (0.1-1.2) X10*3/uL Eos # (Auto) 0.0 (0.0-0.4) X10*3/uL Baso # (Auto) 0.0 (0.0-0.2) X10*3/uL Abs Immat Gran (auto) 0.07 H (0.00-0.03) X10*3/uL Absolute Neuts (auto) 13.5 H (2.0-8.3) x10*3/uL Absolute Nucleated RBC 0.000 (0.0-0.012) X10*3/uL Nucleated RBC % (auto) 0.0 (0.0-0.2) /100WBC Smear Tech's Comments VERIFIED Sodium 130 L (135-145) mmol/L Potassium 3.9 D (3.3-5.1) mmol/L Chloride 99 (96-108) mmol/L Carbon Dioxide 21 L (22-29) mmol/L Anion Gap 14 (12-20) BUN 13 (9-16) mg/dL Creatinine 1.08 (0.5-1.4) mg/dL Estim Creat Clear Calc 42.1 Estimated GFR 52 POC Glucose 298 H (60-115) mg/dL Random Glucose 345 H (60-115) mg/dL Calcium 9.8 D (8.4-10.2) mg/dL Total Bilirubin 0.7 (0.0-1.0) mg/dL AST 35 H (5-31) U/L ALT 28 (0-31) U/L Alkaline Phosphatase 116 (39-117) U/L Total Protein 7.9 (6.5-8.0) g/dL Albumin 3.9 (3.5-5.0) g/dL Beta-Hydroxybutyrate 0.16 (0.02-0.27) mmol/L Beta HCG, Quant < 2 mIU/mL Urine Color Yellow Urine Appearance Clear Urine pH 5.5 (5.0-9.0) Ur Specific [place] 1.015 (1.005-1.025) Urine Protein 30 (1+) H (Neg-Trace) mg/dL Urine Glucose (UA) >=1000 H (Negative) mg/dL Urine Ketones Negative (Negative) mg/dL Urine Blood Trace H (Negative) Urine Nitrite Negative (Negative) Ur Leukocyte Esterase Negative (Negative) Urine RBC 0-2 (0-2) /HPF Urine WBC 6-10 H (0-5) /HPF Ur Squamous Epith Cells 3-5 (0-2) /HPF Urine Bacteria None Seen (None Seen) Hyaline Casts 0-2 (0-2) /LPF Urine Test NEGATIVE (NEGATIVE) Independent Interpretation I performed an independent interpretation of an: CT Scan Radiology Impression Discussion of test interpretation with radiology: I have reviewed the radiologist's reading. Radiologist Impression: Diffusely hypodense liver consistent with hepatic steatosis. Splenomegaly Possible calculus in the mid to distal right ureter measuring 2 mm (series 3, image 73; series 4, image 601). No hydronephrosis at the time of the study. Zkduo-[id number]-pikk-left perinephric fat stranding. Unremarkable left kidney. Mild nonspecific hypertrophy of the bilateral adrenal glands. Normal pancreas. No visible cholelithiasis. No biliary dilation. No evidence of bowel obstruction or colitis. Normal appendix. Unremarkable bladder. Unremarkable uterus. No ascites. No pneumoperitoneum. No lymphadenopathy. No acute fracture. Degenerative changes in the spine. No abdominal aortic aneurysm. IMPRESSION: Possible mid to distal right ureteral calculus. No hydronephrosis at the time of the study. Nonemergent/incidental findings above. Critical Care Time Critical Care Time Critical Care Time: Yes Total Critical Care Time: 45 Attestation: I have personally provided critical care time. Time includes review of lab data, radiology results, discussion with consultants, and monitoring for potential decompensation. Intervention performed as documented. Discharge Plan Discharge Clinical Impression: Acute hyperglycemia, Ureterolithiasis, UTI (urinary tract infection) Patient Disposition: Home, Self-Care Instructions: Urinary Tract Infection in Women (ED), Diabetic Hyperglycemia (ED), Ureteral Stones (ED) Additional Instructions: Please follow-up with your primary care physician tomorrow. If you have any worsening or new symptoms, please return to the emergency room or call 911 Prescriptions: New ketorolac 10 mg tablet 10 mg PO Q8H PRN (Reason: pain) Qty: 12 0RF Rx Instructions: Do not take this medication with ibuprofen or any other NSAIDs tamsulosin 0.4 mg capsule 0.4 mg PO DAILY Qty: 14 0RF levofloxacin 500 mg tablet 500 mg PO DAILY Qty: 6 0RF No Action ibuprofen 800 mg tablet 800 mg PO Q8H PRN (Reason: pain) Qty: 30 0RF losartan 50 mg tablet 50 mg PO DAILY montelukast 10 mg tablet 10 mg PO DAILY alcohol swabs [BD Alcohol Swabs] Pads, Medicated topical insulin aspart U-100 [Novolog FlexPen U-100 Insulin] 100 unit/mL (3 mL) insulin pen 60 - 75 unit subcut TID (DME) FreeStyle Srinath 3 Plus Sensor Device See Rx Instructions .ROUTE .MEDSUPPLY Qty: 1 Rx Instructions: As directed insulin glargine U-300 conc [Toujeo Max U-300 SoloStar] 300 unit/mL (3 mL) insulin pen 160 unit subcut BEDTIME Stand Alone Forms: Work/School Release Interventions: ED Discharge Assessment Last Done: 12/13/24 22:53 Discharge Date/Time: 12/13/24 22:54 Print Language: Guyanese
[2024-12-13 18:52] LABS: Hematocrit 42.3 % (37.0-47.0); Hemoglobin 15.1 g/dl (12.0-16.0); Imm Gran Abs Auto 0.07 X10*3/uL (0.00-0.03); Imm Gran Pct Auto 0.4 % (0.0-0.4); Lymphocytes Absolute Auto 2.3 X10*3/uL (1.2-4.9); MANUAL DIFF FLAG SCAN; Mean Corpuscular HGB Conc 35.7 g/dl (31.0-35.0); Mean Corpuscular Hemoglobin 29.9 pg (27.0-33.0); Mean Corpuscular Volume 83.8 fL (80.0-98.0); NRBC Abs Auto 0.000 X10*3/uL (0.0-0.012); NRBC Pct Auto 0.0 /100WBC (0.0-0.2); Platelet Count 179 X10*3/uL (160-400); Red Blood Count 5.05 X10*6/uL (4.20-5.50); SCAN SMEAR FLAG 1; White Blood Count 17.5 X10*3/uL (4.8-10.8)
[2024-12-13 18:53] LABS: Appearance Urine Clear; Glucose Urine UA >=1000 mg/dL (Negative); PH 5.5 (5.0-9.0); Specific Gravity - Urine 1.015 (1.005-1.025); UMIC TRIGGER UACC YES
[2024-12-13 18:54] LABS: UPreg QC Valid YES
--- OUTSIDE RECORDS SUMMARY | 2024-12-13 18:54 | XMS_ITS | Clinical Summary ---
Author Organization [facility] Address [address] [place] [address] Phone Care Team Providers Care Ring Packer Name Role Phone Ashley Capps MD Primary Care Provi jeison Encounters Date Type Department Care Team Description 12/04/2024 9:40 AM EDT - 12/04/2024 11:59 PM EDT Hospital Encounter [facility] at [address] [phone] Breast calcifications Discharge Disposition: Home or Self Care 12/01/2024 Telephone [facility] - [address] [place] [phone] Ashley Capps MD STRESS TEST EKG NOT SENT FOR REVIEW 11/07/2024 7:13 AM EDT - 11/07/2024 11:59 PM EDT Hospital Encounter [facility] at [address] [phone] Encounter for screening mammogram for malignant neoplasm [...] Care Team (Late st Contact Info) Description 12/24/2024 8:15 AM EDT Ancillary Procedure [facility] - [address] [place] [address] Health Maintenance Due Date Last Done Comments [...] (2 of 2 - PCV) 05/25/2020 05/25/2019 Cholesterol Screening (Lipid Panel) 04/18/2022 Colorectal Cancer Screening: Colonoscopy 04/18/2022 HIV Screening 04/18/2022 Hepatitis C Screening 04/18/2022 Social Influencers of Health Screening 04/18/2022 Zoster Vaccines (2 of 2) 06/28/2023 05/03/2023 COVID-19 Vaccine ( season) 2024 10/21/2020, 09/06/2020 Depression Screening 05/20/2024 Diabetes: Blood Sugar Control Test (HGBA1C) 11/07/2024 Hypertension/CHF/CAD Annual BMP Blood Test 11/07/2024 Diabetes: Annual Urine Albumin-Creatinine Ratio (uACR) 12/16/2024 12/17/2023 Influenza Vaccine (#1) 2025 4, 03/21/2023, 03/09/2021, Additional history exists Breast Cancer Screening 12/04/2026 12/05/19 25, 11/07/2024, 02/04/2023, Additional history exists DTaP,Tdap,and Td Vaccines (2 [...] Priority Date/Time Associated Diagnosis Comments MG MAMMO DIAGNOSTIC ADDL VIEWS RIGHT Routine 12/04/2024 10:29 AM EDT Breast calcifications MG MAMMO DIGITAL SCREENING W YONIS BILAT Routine 11/07/2024 7:29 AM EDT Encounter for screening mammogram for malignant neoplasm of breast from Last 3 Months Results * (ABNORMAL) MG Mammo Diagnostic Addl Views Right (12/04/2024 10:29 AM EDT) Anatomical Region Laterality Modality Breast Right Mammography 12/04/2024 9:59 AM EDT Impressions 12/04/2024 10:23 AM EDT Multiple somewhat pleomorphic microcalcifications are present in the upper-outer quadrant of the right breast, significantly increased in number as compared to prior studies most recently 11/07/2024. Therefore, stereotactic core biopsy is recommended. This finding and recommendation were discussed by me with the patient immediately following completion of imaging. Biopsy will be scheduled. BI-RADS CATEGORY: 4B - MODERATE SUSPICION FOR MALIGNANCY RECOMMENDATION: Core biopsy of right breast recommended. Mammo Location: [facility], [address] [place] [id number] -------- FINAL REPORT -------- Dictated By: Livan Bowen Dictated Date: 12/04/2024 09:59 ET Assigned Physician: Livan Bowen Reviewed and Electronically Signed By: Livan Bowen Signed Date: 12/04/2024 10:23 ET Workstation ID: [id number] Transcribed By: Self Edit Transcribed Date: 12/04/2024 10:05 ET Narrative 12/04/2024 10:23 AM EDT CLINICAL: The patient is a 59 years Female. Screening mammography performed 11/07/2024 demonstrated an increase in calcifications in the upper-outer quadrant of the right breast. The patient now presents for supplementary imaging. COMPARISON: Most recently 11/07/2024 and most remotely 05/09/2015. TECHNIQUE: Digital mammography of the right breast and magnification CC and true lateral projections is performed in the [employer] 2000-D unit. Computer aided detection utilizing the iCAD system was utilized. FINDINGS: The right breast is again seen to be composed of a combination of fatty and fibroglandular elements. The study confirms the presence of a large number of microcalcifications anteriorly in the upper-outer quadrant of the right breast, somewhat pleomorphic. These have markedly increased in number as compared to prior studies. TISSUE DENSITY: There are scattered areas of fibroglandular density. (BI-RADS category B) Procedure Note Livan Bowen MD - 12/04/2024 CLINICAL: The patient is a 59 years Female. Screening mammographyperformed 11/07/2024 demonstrated an increase in calcifications in theupper-outer quadrant of the right breast. The patient now presents forsupplementary imaging. COMPARISON: Most recently 11/07/2024 and most remotely 05/09/2015. TECHNIQUE: Digital mammography of the right breast and magnification CCand true lateral projections is performed in the [employer] 2000-Dunit. Computer aided detection utilizing the iCAD system was utilized. FINDINGS: The right breast is again seen to be composed of a combinationof fatty and fibroglandular elements. The study confirms the presence ofa large number of microcalcifications anteriorly in the upper-outerquadrant of the right breast, somewhat pleomorphic. These have markedlyincreased in number as compared to prior studies. TISSUE DENSITY: There are scattered areas of fibroglandular density.(BI-RADS category B) IMPRESSION: Multiple somewhat pleomorphic microcalcifications are present in theupper-outer quadrant of the right breast, significantly increased innumber as compared to prior studies most recently 11/07/2024. Therefore,stereotactic core biopsy is recommended. This finding and recommendationwere discussed by me with the patient immediately following completion ofimaging. Biopsy will be scheduled. BI-RADS CATEGORY: 4B - MODERATE SUSPICION FOR MALIGNANCY RECOMMENDATION: Core biopsy of right breast recommended. Mammo Location: [facility], [address] [place] [id number] -------- FINAL REPORT -------- Dictated By: Livan Bowen Dictated Date: 12/04/2024 09:59 ET Assigned Physician: Livan Bowen Reviewed and Electronically Signed By: Livan Bowen Signed Date: 12/04/2024 10:23 ET Workstation ID: [id number] Transcribed By: Self Edit Transcribed Date: 12/04/2024 10:05 ET Ashley Last MD IMG BI PROCEDURES F inal Result * (ABNORMAL) MG Mammo Digital Screening w Yonis bilat (11/07/2024 7:29 AM EDT) Anatomical Region Laterality Modality Breast Bilateral Mammography 11/10/2024 9:15 AM EDT Impressions 11/10/2024 9:24 AM EDT Right breast calcifications. Recommend diagnostic right breast mammography with magnification views. BI-RADS CATEGORY: 0 - INCOMPLETE - NEED ADDITIONAL IMAGING EVALUATION RECOMMENDATION: Additional right breast imaging recommended. Mammo Location: [facility], [address] [place] [address], [id number], . -------- FINAL REPORT -------- Dictated By: Josefina Spencer Dictated Date: 11/10/2024 09:15 ET Assigned Physician: Josefina Spencer Reviewed and Electronically Signed By: Josefina Spencer Signed Date: 11/10/2024 09:24 ET Workstation ID: [id number] Transcribed By: Self Edit Transcribed Date: 11/10/2024 [...] recommended. Mammo Location: [facility], [address] [place] [address], [facility], . -------- FINAL REPORT -------- Dictated By: Josefina Spencer Dictated Date: 11/10/2024 09:15 ET Assigned Physician: Josefina Spencer Reviewed and Electronically Signed By: Josefina Spencer Signed Date: 11/10/2024 09:24 ET Workstation ID: [id number] Transcribed By: Self Edit Transcribed Date: 11/10/2024 09:15 ET us Ashley Last MD IMG BI PROCEDURES F inal Result from Last 3 Months Insurance [facility] Care Teams Ring Packer Relationship Specialty Start Date End Date Ashley Capps MD [address] [place] [phone] PCP - General Family Medicine 10/28/24
[2024-12-13 18:55] LABS: UACC Culture Trigger YES
[2024-12-13 19:13] LABS: Alanine Aminotransferase 28 U/L (0-31); Albumin Level 3.9 g/dL (3.5-5.0); Alkaline Phosphatase 116 U/L (39-117); Anion Gap 14 (12-20); Aspartate Amino Transferase 35 U/L (5-31); Blood Urea Nitrogen 13 mg/dL (9-16); Calcium 9.8 mg/dL (8.4-10.2); Carbon Dioxide 21 mmol/L (22-29); Chloride 99 mmol/L (96-108); Creatinine Clr Calc Pharmacy 42.1; Estimated Glomerular Filt Rate 52; Potassium 3.9 mmol/L (3.3-5.1); Sodium 130 mmol/L (135-145); Total Protein 7.9 g/dL (6.5-8.0)
[2024-12-13 19:47] VITALS: BP 137/78; PULSE 108; RESP 16; TEMP 37.1; O2SAT 95
[2024-12-13 20:20] LABS: Glucose, Whole Blood 298 mg/dL (60-115)
[2024-12-13 21:20] VITALS: BP 150/83; PULSE 98; RESP 16; O2SAT 97
[2024-12-13 22:53] VITALS: BP 150/83; PULSE 98; RESP 16; TEMP 36.6; O2SAT 97
== END 2024-12-13 22:54 | disposition home or self-care (01) ==
PROVIDERS: Physician Assistant; Emergency Provider Emergency Medicine; PCP Family Medicine
DX: E11.65 Type 2 diabetes mellitus with hyperglycemia (principal); N20.1 Calculus of ureter; N39.0 Urinary tract infection, site not specified; R10.31 Right lower quadrant pain; R25.2 Cramp and spasm; R10.2 Pelvic and perineal pain; R11.0 Nausea; Z79.4 Long term (current) use of insulin; Z79.899 Other long term (current) drug therapy
CPT/HCPCS: 36415; 74176; 80053; 81001; 81025; 82010; 82947; 84702; 85025; 87086; 96361; 96374; 96375; 99284; J1885

== ENCOUNTER → 2024-12-13 19:52 | Outpatient (BNV) | payer OTHER, SELFPAY | PROVIDERS: Emergency Provider Emergency Medicine; PCP Family Medicine; Visit Provider Radiology Diagnostic Radiology | DX: R16.1 Splenomegaly, not elsewhere classified (principal) | CPT/HCPCS: 74176 ==